=== PATIENT | male | born 1985 | race Caucasian/White ===

== ENCOUNTER 2016-04-19 21:30 | Emergency (ER) | payer SELFPAY ==
[~2016-04-19] VITALS: Ht 180.3 cm; Wt 72.6 kg
[2016-04-19 21:40] VITALS: BP 132/82; PULSE 109; RESP 18; TEMP 98.2; O2SAT 100
--- NOTE | 2016-04-19 21:50 | NUR ---
Pt placed in bed 1 and gowned up for evaluation
--- NOTE | 2016-04-19 21:55 | NUR ---
Pt brought to ED by family member with c/o nosebleed and nose pain 05/29, deformity of nose noted. Pt stated he has an elbow to nose contact during soccer ball game today. A&Ox4, denies chestpain or SOB, denies N/V/D, will continue to monitor
--- NOTE | 2016-04-19 22:50 | NUR ---
Domonique brewer in [facility] - 04/20/16 at 0033 by [email or web address] at bedside performing laceration repair
--- NOTE | 2016-04-19 23:07 | NUR ---
at bedside examining pt
[2016-04-19] MEDS ORDERED: LIDOCAINE/EPI 1% 1:100000 20 ML VIAL IJ ONE (23:15)
[2016-04-19] MEDS ORDERED: BACITRACIN 1 GM OINT TP ONE (23:15)
--- NOTE | 2016-04-19 23:55 | NUR ---
at bedside performing laceration repair
[2016-04-20 00:34] VITALS: BP 120/76; PULSE 87; RESP 18; TEMP 98.2; O2SAT 100
--- NOTE | 2016-04-20 00:34 | NUR ---
Patient given written and verbal discharge instructions and verbalizes understanding. ER MD Torres discussed with patient the results and treatment provided. Given copies of tests performed in ER. Patient in stable condition. ID arm band removed. naprosyn given. Patient educated on pain management and to follow up with PMD. Pain Scale 0/10 Opportunity for questions provided and answered.
== END 2016-04-20 00:34 | disposition home or self-care (01) ==
LOC: SED 21:30
DX: S02.2XXA Fracture of nasal bones, initial encounter for closed fracture (principal); S01.21XA Laceration without foreign body of nose, initial encounter; W22.8XXA Striking against or struck by other objects, initial encounter; Y93.66 Activity, soccer; Y99.8 Other external cause status; Y92.89 Other specified places as the place of occurrence of the external cause
CPT/HCPCS: 70486-TC; 99284